=== PATIENT | female | born 1975 | race African-American/Black ===

== ENCOUNTER 2021-12-25 13:07 | Outpatient (CLI) | payer BC | END 2021-12-25 13:08 | disposition home or self-care (01) | LOC: CSHMAMMO 13:07 | PROVIDERS: ATTEND Family Medicine | DX: Z12.31 Encounter for screening mammogram for malignant neoplasm of breast (principal); N63.25 Unspecified lump in the left breast, overlapping quadrants | CPT/HCPCS: 77063; 77067 ==